=== PATIENT | male | born 1990 | race Hispanic/Latino ===

== ENCOUNTER 2018-12-30 17:06 | Emergency (ER) | payer SELFPAY ==
[2018-12-30] MEDS ORDERED: Acetaminophen 500 MG TAB ONE (17:53)
[2018-12-30] MEDS ORDERED: levETIRAcetam 500 MG TAB PO SCH (18:15)
== END 2018-12-30 19:00 | disposition home or self-care (01) ==
LOC: EDBD 17:06 → ERS 17:06
DX: R56.9 Unspecified convulsions (principal)
CPT/HCPCS: 99284